=== PATIENT | male | born 1995 | race Caucasian/White ===

== ENCOUNTER 2017-04-18 21:24 | Emergency (ER) | payer BC ==
[2017-04-18 21:28] VITALS: RESP 18
[2017-04-18 22:24] LABS: Appearance,Urine Clear (Clear); Bilirubin,Urine Negative (Negative); Glucose,Urine (UA) Negative (Negative); Ketones,Urine Negative (Negative); Leukocyte Esterase,Urine Negative (Negative); Nitrite,Urine Negative (Negative); Protein,Urine Trace (Negative); Specific Gravity,Urine 1.025 (1.001-1.035); UA Billing (MACRO vs. MICRO) CHEM; Urobilinogen,Urine <2.0 mg/dL (<2.0)
[2017-04-18] MEDS ORDERED: KETOROLAC 30 MG/ML 1 ML VIAL IVP STA (22:24)
[2017-04-18] MEDS ORDERED: ONDANSETRON 4 MG/2 ML VIAL IVP STA (22:24)
[2017-04-18] MEDS ORDERED: SODIUM CHLORIDE 0.9% 1,000 ML IV ONE (22:24)
--- NOTE | 2017-04-18 22:32 | ED ---
General Adult HPI - General Chief complaint: Back Pain/Injury Stated complaint: back pain,nausea,painful and frequent urination Time Seen by Provider: 04/18/17 21:58 Source: patient, RN notes reviewed Mode of arrival: ambulatory Limitations: no limitations - History of Present Illness Initial comments: The patient is a 22-year-old male presents to the emergency room for evaluation of back pain. Patient states he's been having frequency in urination, burning during urination and back pain for the past few weeks. Patient states pain worse today and now is having nausea. Patient states the back pain is worse with movement. Patient denies history of STDs. Patient denies fevers or chills. Patient denies recent heavy lifting or twisting his back the wrong way. Patient denies headache or dizziness. Patient denies chest pain or shortness of breath. Patient denies abdominal pain. - Related Data Home Medications Medication Instructions Recorded Confirmed Albuterol Inhaler [Ventolin Hfa 1 - 2 puff INHALATION RT-Q6H PRN 04/18/17 Inhaler] Allergies Allergy/AdvReac Type Severity Reaction Status Date / Time codeine Allergy Unknown Verified 04/18/17 22:03 tape Allergy Unknown Uncoded 04/18/17 21:29 Review of Systems ROS Statement: Those systems with pertinent positive or pertinent negative responses have been documented in the HPI. ROS Other: All systems not noted in ROS Statement are negative. Past Medical History Past Medical History: Asthma History of Any Multi-Drug Resistant Organisms: None Reported Past Surgical History: Adenoidectomy, Orthopedic Surgery, Tonsillectomy Past Psychological History: Anxiety, Depression Smoking Status: Former smoker Past Alcohol Use History: Occasional Past Drug Use History: Marijuana General Exam - General Exam Comments Initial Comments: Sitting in exam room, no acute distress. Limitations: no limitations General appearance: alert, in no apparent distress Head exam: Present: atraumatic, normocephalic, normal inspection Eye exam: Present: normal appearance ENT exam: Present: normal exam Neck exam: Present: normal inspection Respiratory exam: Present: normal lung sounds bilaterally. Absent: respiratory distress Cardiovascular Exam: Present: regular rate, normal rhythm, normal heart sounds GI/Abdominal exam: Present: soft, normal bowel sounds. Absent: distended, tenderness, guarding, rebound, rigid Back exam: Present: normal inspection. Absent: CVA tenderness (R), CVA tenderness (L), vertebral tenderness Neurological exam: Present: alert, oriented X3, CN II-XII intact, normal gait Psychiatric exam: Present: normal affect, normal mood Skin exam: Present: warm, dry, intact, normal color. Absent: rash Course Vital Signs 04/18/17 04/19/17 21:25 01:00 Temperature 98.6 F 98.0 F Pulse Rate 94 78 Respiratory 18 18 Rate Blood Pressure 130/76 106/56 O2 Sat by Pulse 98 97 Oximetry Medical Decision Making - Medical Decision Making Patient is a 22-year-old male presents emergency room for evaluation of back pain. Labs showed no concerning findings. Urinalysis shows no concerning findings. Advised patient to follow-up with primary care provider regarding frequency in urination. Back pain most likely musculoskeletal related. Patient does state pain is worse with movement. Patient denies saddle anesthesia, fecal or urinary incontinence or paresthesias. Advised patient to take Tylenol or Motrin for pain and to follow-up with primary care provider. Patient states she understands everything that was discussed with him. Return parameters discussed. Case discussed with Dr. Bernal. - Lab Data Result diagrams: 04/18/17 23:02 04/18/17 23:02 Lab Results 04/18/17 04/18/17 04/18/17 Range/Units 22:09 23:02 23:02 WBC 9.3 (3.8-10.6) k/uL RBC 4.88 (4.30-5.90) m/uL Hgb 14.5 (13.0-17.5) gm/dL Hct 41.3 (39.0-53.0) % MCV 84.7 (80.0-100.0) fL MCH 29.7 (25.0-35.0) pg MCHC 35.1 (31.0-37.0) g/dL RDW 13.9 (11.5-15.5) % Plt Count 211 (150-450) k/uL Neutrophils % 65 % Lymphocytes % 27 % Monocytes % 6 % Eosinophils % 1 % Basophils % 1 % Neutrophils # 6.0 (1.3-7.7) k/uL Lymphocytes # 2.5 (1.0-4.8) k/uL Monocytes # 0.5 (0-1.0) k/uL Eosinophils # 0.1 (0-0.7) k/uL Basophils # 0.1 (0-0.2) k/uL Sodium 142 (137-145) mmol/L Potassium 3.8 (3.5-5.1) mmol/L Chloride 107 (98-107) mmol/L Carbon Dioxide 23 (22-30) mmol/L Anion Gap 12 mmol/L BUN 26 H (9-20) mg/dL Creatinine 0.78 (0.66-1.25) mg/dL Est GFR (MDRD) Af Amer >60 (>60 ml/min/1.73 sqM) Est GFR (MDRD) Non-Af >60 (>60 ml/min/1.73 sqM) Glucose 87 (74-99) mg/dL Calcium 9.5 (8.4-10.2) mg/dL Total Bilirubin 0.5 (0.2-1.3) mg/dL AST 33 (17-59) U/L ALT 78 H (21-72) U/L Alkaline Phosphatase 93 (38-126) U/L Total Protein 7.3 (6.3-8.2) g/dL Albumin 4.5 (3.5-5.0) g/dL Amylase 35 (30-110) U/L Lipase 30 (23-300) U/L Urine Color Yellow Urine Appearance Clear (Clear) Urine pH 6.0 (5.0-8.0) Ur Specific Orange 1.025 (1.001-1.035) Urine Protein Trace H (Negative) Urine Glucose (UA) Negative (Negative) Urine Ketones Negative (Negative) Urine Blood Negative (Negative) Urine Nitrite Negative (Negative) Urine Bilirubin Negative (Negative) Urine Urobilinogen <2.0 (<2.0) mg/dL Ur Leukocyte Esterase Negative (Negative) - Radiology Data Radiology results: report reviewed, image reviewed Disposition Clinical Impression: Low back pain Disposition: HOME SELF-CARE Condition: Good Instructions: Low Back Strain (ED) Additional Instructions: Tylenol or Motrin as needed for pain. Please follow up with primary care provider in 1-2 days for further evaluation. If any new symptom arises or symptoms worsen or fever, return to ER as soon as possible. Referrals: None,Stated [Primary Care Provider] - 1-2 days Time of Disposition: 00:47
[2017-04-18 23:14] LABS: Basophils # (A) 0.1 k/uL (0-0.2); Basophils % (A) 1 %; CH 29.9; CHCM 35.5; Eosinophils # (A) 0.1 k/uL (0-0.7); Eosinophils % (A) 1 %; HCT 41.3 % (39.0-53.0); HDW 2.76; HGB 14.5 gm/dL (13.0-17.5); Luc # (Auto) 0.11; Luc % (Auto) 1; Lymphocytes # (A) 2.5 k/uL (1.0-4.8); Lymphocytes % (A) 27 %; MCH 29.7 pg (25.0-35.0); MCHC 35.1 g/dL (31.0-37.0); MCV 84.7 fL (80.0-100.0); Mean Platelet Volume 8.5; Monocytes # (A) 0.5 k/uL (0-1.0); Monocytes % (A) 6 %; Neutrophils % (A) 65 %; RBC 4.88 m/uL (4.30-5.90); RDW 13.9 % (11.5-15.5); WBC 9.3 k/uL (3.8-10.6); WBC (Perox) 9.44
[2017-04-18 23:23] LABS: ALT 78 U/L (21-72); AST 33 U/L (17-59); Alkaline Phosphatase 93 U/L (38-126); Amylase 35 U/L (30-110); Anion Gap 12 mmol/L; Blood Urea Nitrogen 26 mg/dL (9-20); Calcium 9.5 mg/dL (8.4-10.2); Carbon Dioxide 23 mmol/L (22-30); Chloride 107 mmol/L (98-107); Glucose 87 mg/dL (74-99); Non-African American GFR(MDRD) >60 (>60 ml/min/1.73 sqM); Potassium 3.8 mmol/L (3.5-5.1); Sodium 142 mmol/L (137-145); Total Bilirubin 0.5 mg/dL (0.2-1.3); Total Protein 7.3 g/dL (6.3-8.2)
--- NOTE | 2017-04-18 23:43 | XR ---
INDICATION: Abdominal pain COMPARISON: None FINDINGS: A total of 2 AP upright views of the abdomen are provided. Nonobstructive bowel gas pattern. No evidence of free air. No evidence of organomegaly or abnormal abdominal calcification. No acute osseous findings. IMPRESSION: Normal abdominal radiographs.
[2017-04-19 01:02] VITALS: BP 106/56; PULSE 78; TEMP 98
== END 2017-04-19 01:11 | disposition home or self-care (01) ==
LOC: EC 21:24
DX: M54.5 Low back pain (principal); R11.0 Nausea; R35.0 Frequency of micturition; Z87.891 Personal history of nicotine dependence; Z88.5 Allergy status to narcotic agent; Z91.048 Other nonmedicinal substance allergy status
CPT/HCPCS: 36415; 80053; 82150; 83690; 85025; 81003; 87491; 87591; 87086; 74000; 99284; 96374; 96375; 96361; J2405; J1885